=== PATIENT | female | born 1990 | race Caucasian/White ===

== ENCOUNTER 2018-09-29 15:05 | Emergency (ER) | payer BC ==
--- NOTE | 2018-09-29 15:32 | UC ---
Hand/Wrist HPI - HPI Summary HPI Summary: 28 yo female presents with left wrist pain for about a month. She says that she did not have an injury. Flexing makes her pain worse and she thinks she has noticed a bump on the dorsal aspect. Has taken ibuprofen for pain with mild relief, but pain comes right back. - History Of Current Complaint Chief Complaint: UCUpperExtremity Stated Complaint: LT WRIST Time Seen by Provider: 09/29/18 15:32 Hx Obtained From: Patient Hx Last Menstrual Period: currently Severity Initially: Mild Severity Currently: Mild Pain Intensity: 4 Pain Scale Used: 0-10 Numeric - Allergies/Home Medications Allergies/Adverse Reactions: Allergies Allergy/AdvReac Type Severity Reaction Status Date / Time oxycodone [From Percocet] AdvReac Severe Nausea And Verified 09/29/18 15:28 Vomiting red dye AdvReac Severe Nausea And Verified 09/29/18 15:28 Vomiting Home Medications: Home Medications NK [No Home Medications Reported] 09/29/18 [History Confirmed 09/29/18] PMH/Surg Hx/FS Hx/Imm Hx - Additional Past Medical History Additional PMH: None - Surgical History Surgical History: Yes Surgery Procedure, Year, and Place: tubal ligation. bunionectomy - Social History Occupation: Employed Full-time Lives: With Family Alcohol Use: Rare Substance Use Type: None Smoking Status (MU): Never Smoked Tobacco Review of Systems All Other Systems Reviewed And Are Negative: Yes Constitutional: Positive: Negative Skin: Positive: Negative Respiratory: Positive: Negative Cardiovascular: Positive: Negative Neurovascular: Positive: Negative Musculoskeletal: Positive: Other: - Left wrist pain Neurological: Positive: Negative Psychological: Positive: Negative Physical Exam - Summary Physical Exam Summary: GENERAL: NAD. WDWN. No pain distress. SKIN: No rashes, sores, lesions, or open wounds. CHEST: No accessory muscle use. Breathing comfortably and in no distress. CV: Pulses intact radial and ulnar. Cap refill <2seconds MSK: LEFT WRIST: TTP at dorsal aspect with ?ganglion cyst <4mm near radial styloid. Strength 5/5 including final dressing cutter strength. No edema or obvious bony deformities. No snuffbox tenderness. NEURO: Alert. Sensations intact hand and all fingers. PSYCH: Age appropriate behavior. Triage Information Reviewed: Yes Vital Signs: Initial Vital Signs Temp 97.6 F 09/29/18 15:25 Pulse 76 09/29/18 15:25 Resp 16 09/29/18 15:25 BP 131/84 09/29/18 15:25 Pulse Ox 100 09/29/18 15:25 Vital Signs Reviewed: Yes Hand/Wrist Course/Dx - Course Course Of Treatment: XR: IMPRESSION: NO FRACTURE OF THE WRIST IS NOTED. Suspect ganglion cyst vs tendon nodule causing her pain. Pt placed in a cock up splint for support and comfort. Advised to RICE and f/u with Orthopedics for further evaluation. - Differential Dx/Diagnosis Provider Diagnosis: Left wrist pain Discharge - Sign-Out/Discharge Documenting (check all that apply): Patient Departure All imaging exams completed and their final reports reviewed: No Studies - Discharge Plan Condition: Stable Disposition: HOME Patient Education Materials: Ganglion Cysts (ED) Referrals: No Primary Care Phys,NOPCP [Primary Care Provider] - Estiven Stanley MD [Medical Doctor] - As Soon As Possible Additional Instructions: If you develop a fever, shortness of breath, chest pain, new or worsening symptoms - please call your PCP or go to the ED. Please follow up with Orthopedics for further evaluation of your wrist pain - Billing Disposition and Condition Condition: STABLE Disposition: Home
== END 2018-09-29 16:24 | disposition home or self-care (01) ==
LOC: UCEAST 15:05
DX: M25.532 Pain in left wrist (principal); Z88.5 Allergy status to narcotic agent; Z91.048 Other nonmedicinal substance allergy status
CPT/HCPCS: 99202; G0463